=== PATIENT | male | born 1960 | race Hispanic/Latino ===

== ENCOUNTER 2019-09-22 14:48 | Emergency (ER) | payer SELFPAY ==
[2019-09-22 14:54] VITALS: BP 124/79
[2019-09-22] MEDS ORDERED: LORazepam 2 MG/ML VIAL IM PRN (15:06)
[2019-09-22] MEDS ORDERED: HALOPERIDOL LACTATE 5 MG/1 ML INJ IM PRN (15:06)
--- NOTE | 2019-09-22 15:07 | Emergency Department Report ---
Chief Complaint: Psych Stated Complaint: SI Time Seen by Provider: 09/22/19 15:06 - HPI History of Present Illness: 59 male p/w anxiety depression mala[place] fatigue weakness si chronic physical pain chronic physical pain has access to guns labs ed hold med clearance for psych Vital Signs 09/22/19 14:53 Temperature 97.3 F L Pulse Rate 94 H Respiratory 16 Rate Blood Pressure 124/79 O2 Sat by Pulse 96 Oximetry - Exam Vital Signs: Vital Signs 09/22/19 14:53 Temperature 97.3 F L Pulse Rate 94 H Respiratory 16 Rate Blood Pressure 124/79 O2 Sat by Pulse 96 Oximetry MSE screening note: Focused history and physical exam performed. Due to findings the following was ordered: ED Disposition for MSE Condition: Stable
[2019-09-22 16:00] LABS: Basophils % (Auto) 0.4 % (0.0-1.8); Eosinophils # (Auto) 0.2 K/mm3 (0.0-0.4); Eosinophils % (Auto) 2.9 % (0.0-4.3); Hematocrit 45.9 % (35.5-45.6); Hemoglobin 15.6 gm/dl (11.8-15.2); Lymphocytes # (Auto) 1.3 K/mm3 (1.2-5.4); Lymphocytes % (Auto) 17.1 % (13.4-35.0); Mean Corpuscular HGB Conc 34 % (32-34); Mean Corpuscular Volume 95 fl (84-94); Monocytes # (Auto) 0.6 K/mm3 (0.0-0.8); Monocytes % (Auto) 7.4 % (0.0-7.3); Platelet Count 153 K/mm3 (140-440); Red Blood Count 4.83 M/mm3 (3.65-5.03); Red Cell Distribution Width 13.5 % (13.2-15.2)
[2019-09-22 16:25] LABS: Alanine Aminotransferase 30 units/L (7-56); Albumin 3.9 g/dL (3.9-5); BUN/Creatinine Ratio 14; Blood Urea Nitrogen 14 mg/dL (9-20); Calcium 8.5 mg/dL (8.4-10.2); Hemolysis Index 9
== END 2019-09-22 18:54 | disposition left against medical advice (07) ==
LOC: ED 14:48
DX: R53.1 Weakness (principal); R53.81 Other malaise
CPT/HCPCS: 36415; 80053; 80320; 84443; 85025; 99283; G0480